=== PATIENT | female | born 1945 | race Caucasian/White ===

== ENCOUNTER 2019-02-01 06:31 | Inpatient (IN) ==
[2019-01-23 10:11] LABS: HEMATOCRIT 38.7 % (37.0-47.0); HEMOGLOBIN 12.7 g/dL (12.0-16.0); MCH 29.1 PG (27-31); MCHC 32.8 g/dL (33-37); MCV 88.6 FL (81-99); MPV 10.5 FL (7.4-10.4); RBC 4.37 XMIL (4.2-5.4); RDW 15.2 % (11.5-14.5); WBC 9.67 X1000 (4.8-10.8)
--- NOTE | 2019-01-23 10:11 | Diag Imaging Result Doc PS360 ---
CHEST-2 VIEWS - 01/23/2019 INDICATION: PAT COMPARISON: 08/28/2018 FINDINGS: The lungs are normally expanded and clear. Heart size and mediastinal contours are normal. No pneumothorax or pleural effusion. IMPRESSION: Negative exam. Electronically signed by Velasquez Shin 01/23/2019 10:09 AM
[2019-01-23 10:49] LABS: CALCIUM 9.4 mg/dL (8.8-10.2); CREATININE 1.6 mg/dL (0.5-0.9); POTASSIUM 4.4 mmol/L (3.5-5.1)
[2019-01-23 10:54] LABS: ALB/GLOB RATIO 1.3; ALBUMIN 4.2 g/dL (3.5-5.0); DIRECT BILIRUBIN 0.1 mg/dL (0.00-0.20); TOTAL BILIRUBIN 0.37 mg/dL (0.20-1.00); TOTAL PROTEIN 7.4 g/dL (6.3-8.3)
[2019-02-01] MEDS ORDERED: KEFZOL 2 GM/D5W 2 GM/50 ML IVPB ONE (06:55)
[2019-02-01] MEDS ORDERED: LR 500 ML ONE (06:55)
[2019-02-01] MEDS ORDERED: PEPCID ONE (07:22)
[2019-02-01] MEDS ORDERED: REGLAN ONE (07:22)
[2019-02-01] MEDS ORDERED: MURI-LUBE MINERAL OIL ONE (07:43)
[2019-02-01] MEDS ORDERED: SENSORCAINE 0.5%-EPI 1:200,000 ONE (07:43)
[2019-02-01] MEDS ORDERED: EPINEPHRINE ONE (07:43)
[2019-02-01] MEDS ORDERED: METHYLENE BLUE 0.5% ONE (07:43)
[2019-02-01] MEDS ORDERED: ROBINUL ONE (08:03)
[2019-02-01] MEDS ORDERED: DIPRIVAN 1% ONE (08:03)
[2019-02-01] MEDS ORDERED: XYLOCAINE-MPF 2% ONE (08:03)
[2019-02-01] MEDS ORDERED: QUELICIN (DOSE) ONE ×2 (08:03→08:07)
[2019-02-01] MEDS ORDERED: FENTANYL ONE ×3 (08:03→09:49)
[2019-02-01] MEDS ORDERED: LUBRIFRESH PM OPH OINTMENT ONE (08:37)
[2019-02-01] MEDS ORDERED: OFIRMEV 1000 MG/ISOTONIC SOLN 1,000 MG/100 ML BOTTLE ONE (08:51)
[2019-02-01] MEDS ORDERED: ZOFRAN ONE (08:51)
[2019-02-01] MEDS ORDERED: EPHEDRINE ONE (11:16)
[2019-02-01] MEDS: DILAUDID ONE ×2 (12:30→12:35)
[2019-02-01] MEDS ORDERED: PHENERGAN ONE (12:50)
[2019-02-01] MEDS ORDERED: ZAROXOLYN PO PRN (13:21)
[2019-02-01] MEDS ORDERED: HUMULIN R IV ONE (13:21)
[2019-02-01] MEDS ORDERED: BUMEX PO SCH (13:21)
[2019-02-01] MEDS ORDERED: COLCRYS PO PRN ×2 (13:21→16:03)
[2019-02-01] MEDS ORDERED: ZOFRAN IV PRN (13:21)
[2019-02-01] MEDS: MORPHINE IV PRN ×2 (15:20→23:51)
[2019-02-01] MEDS: 1/2 NS + KCL 20 MEQ 1,000 ML IV SCH (15:20)
[2019-02-01] MEDS: NORCO-10 PO PRN (19:52)
--- NOTE | 2019-02-01 21:13 | OPERATIVE NOTE ---
PROCEDURE DATE: 02/01/2019 PREOPERATIVE DIAGNOSES: 1. Right breast cancer. 2. Lobular carcinoma in situ. 3. Abnormal left mammogram. 4. History of malignant melanoma. 5. Nonhealing surgical wound. POSTOPERATIVE DIAGNOSES: 1. Right breast cancer. 2. Lobular carcinoma in situ. 3. Abnormal left mammogram. 4. History of malignant melanoma. 5. Nonhealing surgical wound. PROCEDURE: 1. [place] lymph node biopsy of right axillary nodes. 2. Right total mastectomy. 3. Left total mastectomy. 4. Debridement of wound in preparation for skin graft. 5. Full-thickness skin graft to left leg. SURGEONS: Dr. Fletcher Mcdowell. CARTOGRAPHY/MAPPING TECHNICIAN: ROBERT [email or web address]. ANESTHESIA: General. ESTIMATED BLOOD LOSS: 400 mL. COMPLICATIONS: None apparent. SPECIMEN: 1. Right axillary sentinel lymph nodes. 2. Right breast. 3. Left breast. DRAINS: Four #10 LUCAS. FINDINGS: The sentinel lymph nodes in the right axilla were negative on frozen section. The left leg wound measured 4 x 4 cm and was granulating well. TECHNIQUE: She was brought to the operating room and placed supine on the table. She was prepped and draped in the usual sterile fashion, with both arms abducted. Beginning with the axillary lymph node biopsy, we made a curvilinear incision in the inferior hair-bearing line of the right axilla. This was carried down through the dermis sharply with a knife and continued down through the subcutaneous fat into the clavipectoral fascia with cautery. I should also point out prior to making incision, I did inject 5 mL of methylene blue into the subcutaneous tissues below the right areola. This was massaged into the breast for several minutes. I then began exploring the right axilla. Using the gamma probe, I was able to identify several areas of increased activity and I was also able to identify several lymph nodes with blue dye. In all, I dissected out 3 separate lymph nodes. The first one had a 10 second ex Vivo count of over 17,000. The next two had lower counts, but they were quite elevated. The remaining count in the axillary bed were negligible. I did not see any further blue nodes in the axilla. We removed 3 in total. There were no other palpable bulky grossly abnormal nodes. I then turned my attention to the right mastectomy. An elliptical incision was made around the right breast, including the nipple and areola, and this was connected to our axillary incision. A superior skin flap was created first with cautery up to the pectoral muscle near the clavicle and inferior skin. Skin flap was then made down to the inframammary fold. We then removed the breast from the chest wall from medial to lateral using cautery. I received report from the pathologist that the lymph nodes were negative on frozen section. I then washed out the wound with saline and used cautery for hemostasis. There were a couple of subcutaneous veins that were clamped with a hemostat and ligated with 3-0 silk. I was satisfied with hemostasis. I made two small stab incisions, an 11 blade in the inferior lateral chest wall and brought in a 10 [place] drains, and positioned one into the axilla and superior portion of the wound and one into the inferior portion of the wound. I then closed the dermis with interrupted 3-0 Polysorb and closed the skin with skin clips. A sterile dressing was applied. We then turned our attention to the left mastectomy. An elliptical incision was made around the breast and superior and inferior flaps were created as described before. The breast was removed from the chest wall from medial to lateral as described before. Hemostasis was achieved in a similar fashion. Drains were placed and it was closed in the same fashion. I debrided the left leg wound next with a fresh 10 blade. I should also point out that our instruments used for the left breast and the skin grafts were completely different than those used for the right mastectomy and axillary node biopsy. The wound on the left leg was debrided sharply with a knife back to healthier bleeding edges. I cross-hatched the granulation tissue with the knife. I then used a portion of the skin on the lateral aspect of the left mastectomy specimen, cut a circular full-thickness piece of skin that would fit our wound 4 x 4 cm. I then removed the fat from the dermis sharply with Metzenbaum scissors. I then positioned the graft onto the wound and sutured it with interrupted 4-0 chromic sutures circumferentially. A pressure dressing was applied. He was then awakened in stable condition and transferred to recovery. There were no apparent complications. cc: Fletcher Mcdowell MD [facility] HOSPITALMerly
[2019-02-01] MEDS: BUMEX PO SCH (22:47)
[2019-02-01] MEDS: COREG PO SCH (22:48)
[2019-02-01] MEDS: ATIVAN PO SCH (22:48)
[2019-02-01] MEDS: KLOR-CON PO SCH (22:48)
[2019-02-01] MEDS: LOVENOX SUBQ SCH (22:48)
[2019-02-02 02:58] LABS: URINE SOURCE CATH
[2019-02-02 03:01] LABS: BILIRUBIN URINE NEGATIVE (NEGATIVE); BLOOD URINE NEGATIVE (NEGATIVE); COLOR YELLOW; GLUCOSE URINE NEGATIVE (NEGATIVE); KETONE URINE NEGATIVE (NEGATIVE); LEUKOCYTES URINE NEGATIVE (NEGATIVE); NITRITE URINE NEGATIVE (NEGATIVE); PH URINE 5.5; PROTEIN URINE NEGATIVE (NEGATIVE); SP GRAVITY URINE 1.005; TURBIDITY URINE CLEAR (CLEAR); UROBILINOGEN URINE NORMAL (NORMAL)
[2019-02-02 03:02] LABS: UR EPITHELIAL CELLS <10 /HPF (<10); URINE BACTERIA NEGATIVE /HPF; URINE RBC <10 /HPF (<10); URINE WBC <10 /HPF (<10)
[2019-02-02] MEDS: 1/2 NS + KCL 20 MEQ 1,000 ML IV SCH (04:41)
[2019-02-02] MEDS: MORPHINE IV PRN ×4 (04:43→22:52)
[2019-02-02 06:43] LABS: HEMOGLOBIN 10.3 g/dL (12.0-16.0); MCH 29.8 PG (27-31); MCHC 32.2 g/dL (33-37); MCV 92.5 FL (81-99); MPV 10.5 FL (7.4-10.4); RBC 3.46 XMIL (4.2-5.4); WBC 9.31 X1000 (4.8-10.8)
[2019-02-02] MEDS: NORCO-10 PO PRN ×3 (07:06→20:45)
[2019-02-02 07:20] LABS: CALCIUM 8.2 mg/dL (8.8-10.2); CREATININE 1.4 mg/dL (0.5-0.9); POTASSIUM 3.5 mmol/L (3.5-5.1)
[2019-02-02] MEDS: BUMEX PO SCH ×2 (09:54→20:45)
[2019-02-02] MEDS: VITAMIN B-12 PO SCH (09:54)
[2019-02-02] MEDS: LIPITOR PO SCH (09:54)
[2019-02-02] MEDS: ULORIC PO SCH (09:55)
[2019-02-02] MEDS: COREG PO SCH ×2 (09:55→20:46)
[2019-02-02] MEDS: KLOR-CON PO SCH ×2 (09:55→20:45)
[2019-02-02] MEDS: VITAMIN D PO SCH (09:55)
[2019-02-02] MEDS: PERIDEX MT SCH ×2 (09:55→20:46)
[2019-02-02] MEDS: COZAAR PO SCH (09:55)
[2019-02-02] MEDS: ASPIRIN PO SCH (09:56)
[2019-02-02] MEDS: LANTUS INSULIN SUBQ SCH (09:56)
--- NOTE | 2019-02-02 10:13 | GENERAL SURGERY PROGRESS NOTE ---
DATE: 02/02/2019 SUBJECTIVE: The patient says she did not sleep at all last night, mostly due to noises down the fine. However, she also has a lot of pain in her right chest and axillary area. She also reports inability to void overnight and she had an in-and-out catheter placed this morning and that brought relief from her full bladder. OBJECTIVE: Vital Signs: Afebrile. Vital signs are stable. Urine output 1990 mL and another 990 mL. LUCAS drains: 1) 110. 2) 90. 3) 20. 4) Was not recorded. All the drains are bloody in nature. General: She is awake, alert, oriented x3. No acute distress. CV: Regular rate and rhythm. Respiratory: Bilateral breath sounds. No work of breathing. Chest: Bandages appear to be clean and dry. No significant swelling. Extremities: The left leg bandage is also clean and dry. LABORATORY DATA: White blood cell count 9.3, hemoglobin 10, hematocrit 32, platelet count 217,000. Electrolytes reviewed and unremarkable. ASSESSMENT AND PLAN: A 73-year-old female, postoperative day 1 bilateral mastectomies, right axillary sentinel lymph node biopsy and left leg full-thickness skin graft. We will observe her again today and tonight and hopefully she will be able to ambulate some, eat some food, to get some sleep and be able to void on her own. If she can do these things, she can be discharged tomorrow. cc: Fletcher Mcdowell MD
[2019-02-02 18:42] LABS: URINE SOURCE CATH
[2019-02-02 18:44] LABS: BILIRUBIN URINE NEGATIVE (NEGATIVE); BLOOD URINE NEGATIVE (NEGATIVE); COLOR STRAW; GLUCOSE URINE NEGATIVE (NEGATIVE); KETONE URINE NEGATIVE (NEGATIVE); LEUKOCYTES URINE NEGATIVE (NEGATIVE); NITRITE URINE NEGATIVE (NEGATIVE); PROTEIN URINE NEGATIVE (NEGATIVE); TURBIDITY URINE CLEAR (CLEAR); UROBILINOGEN URINE NORMAL (NORMAL)
[2019-02-02 18:46] LABS: UR EPITHELIAL CELLS <10 /HPF (<10); URINE BACTERIA NEGATIVE /HPF; URINE RBC <10 /HPF (<10); URINE WBC <10 /HPF (<10)
[2019-02-02] MEDS: ATIVAN PO SCH (20:45)
[2019-02-02] MEDS: LOVENOX SUBQ SCH (20:46)
[2019-02-03] MEDS: NORCO-10 PO PRN ×2 (04:52→11:53)
[2019-02-03] MEDS: MORPHINE IV PRN (05:38)
[2019-02-03] MEDS: BUMEX PO SCH (09:14)
[2019-02-03] MEDS: ULORIC PO SCH (09:14)
[2019-02-03] MEDS: KLOR-CON PO SCH (09:15)
[2019-02-03] MEDS: LIPITOR PO SCH (09:15)
[2019-02-03] MEDS: COREG PO SCH (09:15)
[2019-02-03] MEDS: ASPIRIN PO SCH (09:15)
[2019-02-03] MEDS: VITAMIN D PO SCH (09:15)
[2019-02-03] MEDS: PERIDEX MT SCH (09:16)
[2019-02-03] MEDS: VITAMIN B-12 PO SCH (09:16)
[2019-02-03] MEDS: COZAAR PO SCH (09:16)
[2019-02-03] MEDS: LANTUS INSULIN SUBQ SCH (09:16)
[2019-02-03 11:25] VITALS: BP 104/47
--- NOTE | 2019-02-03 13:21 | GENERAL SURGERY PROGRESS NOTE ---
DATE: 02/03/2019 SUBJECTIVE: She is feeling very well. She had a Santos catheter placed last night for possible urinary retention. No fevers. No tachycardia. Blood pressure 111/54. Bilateral mastectomy dressings are in place. The wounds are flat LUCAS drain serosanguineous. Her left lower extremity split-thickness skin graft is flat as well. Her white count was 9 yesterday, hematocrit was 32, creatinine is 1.4. Urinalysis is negative. ASSESSMENT AND PLAN: A 73-year-old female patient of Dr. Mcdowell's with bilateral mastectomies with left lower extremity split-thickness skin graft after resection of melanoma. She wants to go home. I think it is reasonable. We have given her discharge instructions. We will remove her catheter to make sure she can void and allow her to go back. I did encourage her to come back if she has any urinary retention symptoms at home. She will see Dr. Mcdowell in the office on Tuesday. cc: MD Fletcher Conner MD
== END 2019-02-03 13:55 | disposition home or self-care (01) | DRG 577 ==
LOC: NM 06:31 → 4N 06:31 → OPS 06:31 → 4N 08:51
PROVIDERS: ADMIT Surgery; ATTEND Surgery
PROC: GE.BXSN (2019-02-01 08:25)
CPT/HCPCS: 38792; 71020; 71046; 80048; 80076; 81001; 82948; 85027; 86850; 86900; 86901; 88307; 88331; 94761; 94799; A9270; A9520; J0131; J0171; J0330; J0690; J1170; J1650; J1815; J2270; J2405; J2550; J3010; J3480; J7120; Q9968; XXXXX